=== PATIENT | female | born 1995 | race Hispanic/Latino ===

== ENCOUNTER 2018-01-01 06:18 | Emergency (ER) | payer MEDICAID, SELFPAY ==
[2018-01-01] MEDS ORDERED: Ondansetron ODT 4 MG TAB ONE ×2 (07:12→07:24)
[2018-01-01] MEDS ORDERED: Acetaminophen 500 MG TAB ONE (07:12)
[2018-01-01 08:12] LABS: Bilirubin Negative (Negative); Blood, Urine Negative (Negative); Clarity CLEAR (Clear); Glucose, Urine (Dipstick) Negative (Negative); Leukocyte Negative (Negative); Nitrite Negative (Negative); Protein, Urine (Dipstick) Negative (Neg-Trace); Specific Gravity, Urine 1.027 (1.002-1.036); pH, Urine 5.5 (5.0-9.0)
[2018-01-01 08:26] LABS: Pregnancy Test - Urine (BHCG) POSITIVE (Negative); Pregu Control Background? CLEAR/WHITE (CLR/WHITE); Pregu Control Bar Appear? YES (CONTROL BAR); Specific Gravity 1.027 (1.002-1.036)
--- NOTE | 2018-01-01 09:04 | ULT ---
ULTRASOUND LESS THAN 14 WEEKS: Date: 01/01/18 HISTORY: 22-year-old female with history of abdominal pain and early . TECHNIQUE: Exam includes transabdominal, transvaginal, and vascular duplex with color and spectral Doppler imagi ng. FINDINGS: The uterus measures 9.0 cm in length and 6.0 x 7.5 cm transversely. The right ovary measures 2.8 x 1. 4 x 1.9 cm. The left ovary measures 2.5 x 2.0 x 2.9 cm. An early intrauterine fetus is noted. heart rate is 153 beats/minute. Gestational sac size appr oximates 2.4 cm, equivalent to 7 weeks/3 days. [place]-rump length approximates 1.0 cm, equivalent to 7 weeks/1 day. IMPRESSION: With gestational age average of 7 weeks/2 days, EDC is 08/18/18. POS: [facility]
== END 2018-01-01 08:38 | disposition home or self-care (01) ==
LOC: ERS 06:18
DX: O21.9 Vomiting of pregnancy, unspecified (principal); O99.89 Other specified diseases and conditions complicating pregnancy, childbirth and the puerperium; R10.31 Right lower quadrant pain; R10.32 Left lower quadrant pain; Z3A.01 Less than 8 weeks gestation of pregnancy
CPT/HCPCS: 76856; 81003; 81025; Q0162

== ENCOUNTER 2018-02-24 02:15 | Emergency (ER) | payer MEDICAID, OTHER, SELFPAY ==
[2018-02-24] MEDS ORDERED: Acetaminophen 500 MG TAB ONE (03:06)
[2018-02-24 03:52] LABS: #Eosinphils 0.3 thou/uL (0.0-0.7); #Lymphocytes 3.5 thou/uL (1.20-3.40); #Monocytes 0.9 thou/uL (0.11-0.59); #Neutrophils 6.3 thou/uL (1.40-6.50); %Basophils 0.4 % (0.0-1.0); %Eosinophils 2.6 % (0.0-10.0); %Lymphocytes 31.9 % (21.0-51.0); %Monocytes 8.3 % (0.0-10.0); %Neutrophils 56.8 % (42.0-75.0); Bilirubin Negative (Negative); Blood, Urine Negative (Negative); Clarity CLEAR (Clear); Glucose, Urine (Dipstick) Negative (Negative); Leukocyte Negative (Negative); Mean Corpuscular HGB CONC 34.5 g/dL (32.0-36.0); Mean Corpuscular Hemoglobin 30.4 pg (27.0-31.0); Mean Platelet Volume 7.6 fL (7.4-10.4); Nitrite Negative (Negative); Platelet Count 243 thou/uL (130-400); Protein, Urine (Dipstick) Negative (Neg-Trace); RBC Distribution Width 12.3 % (11.5-14.5); Red Blood Cell (RBC) Count 4.27 mill/uL (4.20-5.40); Specific Gravity, Urine 1.021 (1.002-1.036); pH, Urine 5.5 (5.0-9.0)
[2018-02-24 04:11] LABS: ALT (SGPT) 20 U/L (8-55); AST (SGOT) 18 U/L (5-34); Albumin 4.2 g/dL (3.5-5.0); Alkaline Phosphatase 106 U/L (40-150); Anion Gap 14 mmol/L (10-20); BUN (Urea Nitrogen) 5 mg/dL (7.0-18.7); Bilirubin, Total 0.2 mg/dL (0.2-1.2); Calc. Creatinine Clearance 0 mL/min (70-130); Calcium 9.9 mg/dL (7.8-10.44); Carbon Dioxide 23 mmol/L (22-29); Chloride 103 mmol/L (98-107); Estimated GFR-MDRD Greater than 90; Globulin 3.8 g/dL (2.4-3.5); Glucose 94 mg/dL (70-105); Lipase 47 U/L (8-78); Potassium 3.7 mmol/L (3.5-5.1); Sodium 136 mmol/L (136-145)
== END 2018-02-24 05:00 | disposition home or self-care (01) ==
LOC: ERS 02:15
DX: O99.89 Other specified diseases and conditions complicating pregnancy, childbirth and the puerperium (principal); M79.1 Myalgia; Z3A.15 15 weeks gestation of pregnancy
CPT/HCPCS: 80053; 81003; 83690; 85025; 96360

== ENCOUNTER 2018-03-09 14:12 | Emergency (ER) | payer OTHER ==
[2018-03-09] MEDS ORDERED: Acetaminophen 500 MG TAB ONE (15:06)
[2018-03-09 15:19] LABS: Bilirubin Negative (Negative); Blood, Urine Negative (Negative); Clarity CLEAR (Clear); Glucose, Urine (Dipstick) Negative (Negative); Leukocyte Negative (Negative); Nitrite Negative (Negative); Protein, Urine (Dipstick) Negative (Neg-Trace); pH, Urine 7.5 (5.0-9.0)
== END 2018-03-09 16:29 | disposition home or self-care (01) ==
LOC: ERS 14:12
DX: O99.89 Other specified diseases and conditions complicating pregnancy, childbirth and the puerperium (principal); R10.9 Unspecified abdominal pain; Z3A.17 17 weeks gestation of pregnancy; V43.52XA Car driver injured in collision with other type car in traffic accident, initial encounter
CPT/HCPCS: 36415; 81003; 86900; 86901; 99284

== ENCOUNTER → 2018-05-17 | Day surgery (SDC) | payer OTHER ==
[~2018-05-17] MED LIST: Acetaminophen 325 MG TAB PO PRN; Lactated Ringer's 1,000 ML IV SCH; diphenhydrAMINE 25 MG CAP PO PRN
[2018-05-17 03:05] VITALS: BP 109/63; TEMP 99.1; BMI 30.9
[2018-05-17 04:14] LABS: Bilirubin Negative (Negative); Blood, Urine Negative (Negative); Clarity CLEAR (Clear); Glucose, Urine (Dipstick) Negative (Negative); Leukocyte Negative (Negative); Nitrite Negative (Negative); Protein, Urine (Dipstick) Negative (Neg-Trace); Specific Gravity, Urine 1.006 (1.002-1.036); Urobilinogen 0.2 mg/dL (0.2-1.0); pH, Urine 7.5 (5.0-9.0)
[2018-05-17 04:16] LABS: Bacteria/HPF None Seen HPF (None Seen); Hyaline Casts/LPF 0-3 HYALINE CAST LPF (0-3 Hyaline); Pathc Cast-AUWi Flag 0.72 (0-2.49); RBC/HPF None Seen HPF (0-3); Squamous Epithelial 0-3 HPF (0-3); WBC/HPF None Seen HPF (0-3)
[2018-05-17 04:29] LABS: #Basophils 0.1 thou/uL (0.0-0.2); #Eosinphils 0.1 thou/uL (0.0-0.7); #Monocytes 1.1 thou/uL (0.11-0.59); #Neutrophils 7.6 thou/uL (1.40-6.50); %Basophils 0.5 % (0.0-1.0); %Eosinophils 1.2 % (0.0-10.0); %Lymphocytes 25.2 % (21.0-51.0); %Monocytes 9.2 % (0.0-10.0); %Neutrophils 63.8 % (42.0-75.0); Hemoglobin 11.2 g/dL (12.0-16.0); Mean Corpuscular HGB CONC 33.7 g/dL (32.0-36.0); Mean Corpuscular Hemoglobin 28.4 pg (27.0-31.0); Mean Corpuscular Volume 84.3 fL (78.0-98.0); Mean Platelet Volume 7.6 fL (7.4-10.4); Platelet Count 299 thou/uL (130-400); Red Blood Cell (RBC) Count 3.93 mill/uL (4.20-5.40); White Blood Cell (WBC) Count 11.9 thou/uL (4.8-10.8)
[2018-05-17 04:51] LABS: ALT (SGPT) 21 U/L (8-55); AST (SGOT) 18 U/L (5-34); Albumin 3.4 g/dL (3.5-5.0); Alkaline Phosphatase 145 U/L (40-150); Anion Gap 10 mmol/L (10-20); BUN (Urea Nitrogen) 5 mg/dL (7.0-18.7); Bilirubin, Total 0.3 mg/dL (0.2-1.2); Calc. Creatinine Clearance 187 mL/min (70-130); Calcium 8.8 mg/dL (7.8-10.44); Carbon Dioxide 22 mmol/L (22-29); Chloride 106 mmol/L (98-107); Estimated GFR-MDRD Greater than 90; Globulin 3.5 g/dL (2.4-3.5); Glucose 92 mg/dL (70-105); Potassium 3.9 mmol/L (3.5-5.1); Protein, Total 6.9 g/dL (6.0-8.3); Sodium 134 mmol/L (136-145)
--- NOTE | 2018-05-17 07:52 | PDOC.FPROB ---
Addendum entered and electronically signed by Janeth Roy MD 05/17/18 08: 06: UA, CMP, CBC were largely unremarkable. Abdominal ultrasound showed no evidence of acute pathology. Pt's pain improved with Tylenol and Benadryl. Pain likely musculoskeletal, round ligament pain. Discussed stretching exercises. Cervical exam not performed because patient refused. Pt discharged from L&D in stable condition. Original Note: FMR OB H&P: HPI - History of Present Illness Chief Complaint: Abdominal Pain History of Present Illness: 22yo at 26.6 weeks EGA presenting with 1 day history of worsening abdominal pain. Pain is in bilateral lower abdominal quadrants with radiation to the buttocks and lateral thighs. Pt reports pain is 10/10 and is of crampy character. Pt reports feeling similar pain many days ago but that it resolved spontaneously. Pain is constant. Denies vaginal bleeding/loss of fluid, reports good movement. Denies nausea/vomiting, complains of headache, sob, and cp. FMR OB H&P: Current - OB Labs Blood type: unknown RH: unknown Antibody Screen: unknown HIV: unknown RPR: unknown HepBsAg: unknown Quad screen: unknown Urine drug screen: not done Gonorrhea: unknown Chlamydia: unknown GBS: unknown FMR OB H&P: History - Past Medical History PMH: none - OB History OB History: #1 - C section, no complications with - Surgical History Sx History: C section - Social History Social History: Denies EtOH/tobacco/drugs - Family History Family History: DM FMR OB H&P: Medications - Current Home Medications: Medication Instructions Recorded Confirmed Type Pnv No.95/Ferrous Fum/Folic AC 1 each PO DAILY 05/17/18 05/17/18 History [ Multivitamin Tablet] Allergies/Adverse Reactions: Allergies Allergy/AdvReac Type Severity Reaction Status Date / Time No Known Allergies Allergy Verified 05/17/18 02:48 FMR OB H&P: ROS - Review of Systems General: denies: fever/chills ENT: denies: nasal congestion Cardiovascular: reports: chest pain. denies: palpitation Respiratory: reports: shortness of breath. denies: cough Gastrointestinal: reports: abdominal pain, cramping. denies: indigestion, nausea, vomiting, bright red blood Musculoskeletal: reports: pain, tenderness Neurologic: denies: numbness, syncope FMR OB H&P: Vital Signs - Maternal Vital signs: Vital Signs - First Documented Temp Pulse Resp BP 99.1 F 83 16 109/63 05/17/18 02:46 05/17/18 02:46 05/17/18 02:46 05/17/18 02:46 - Heart Tones Variability: moderate Acceleration: absent Deceleration: absent Category: category 1 FMR OB H&P: Physical Exam - Physical Exam General: awake, alert and oriented HEENT: normocephalic and atraumatic, EOMI, MMM, normal nasal mucosa Chest: non-tender to palpation Heart: RRR, normal S1/S2 General: CTAB, no respiratory distress Abdomen: gravid, other (bilateral lower quadrant tenderness to palpation) Deviation from normal: + heel tap test Musculoskeletal: other (pt unable to tolerate psoas and obturator test due to pain. tenderness to palpation of lateral bilateral thighs) FMR OB H&P: Results - Labs Lab results: Laboratory Results - last 24 hr 05/17/18 05/17/18 05/17/18 03:56 04:20 04:20 WBC 11.9 H RBC 3.93 L Hgb 11.2 L Hct 33.2 L MCV 84.3 MCH 28.4 MCHC 33.7 RDW 13.0 Plt Count 299 MPV 7.6 Neutrophils % 63.8 Lymphocytes % 25.2 Monocytes % 9.2 Eosinophils % 1.2 Basophils % 0.5 Neutrophils # 7.6 H Lymphocytes # 3.0 Monocytes # 1.1 H Eosinophils # 0.1 Basophils # 0.1 Sodium 134 L Potassium 3.9 Chloride 106 Carbon Dioxide 22 Anion Gap 10 BUN 5 L Creatinine 0.56 L Estimated GFR (MDRD) Greater than 90 Glucose 92 Calcium 8.8 Total Bilirubin 0.3 AST 18 ALT 21 Alkaline Phosphatase 145 Serum Total Protein 6.9 Albumin 3.4 L Globulin 3.5 Albumin/Globulin Ratio 1.0 L Urine Color YELLOW Urine Clarity CLEAR Urine pH 7.5 Ur Specific [place] 1.006 Urine Protein Negative Urine Glucose (UA) Negative Urine Ketones Negative Urine Blood Negative Urine Nitrite Negative Urine Bilirubin Negative Urine Urobilinogen 0.2 Ur Leukocyte Esterase Negative Urine RBC None Seen Urine WBC None Seen Ur Squamous Epith Cells 0-3 Urine Bacteria None Seen Hyaline Casts 0-3 HYALINE CAST FMR OB H&P: A/P - Problem List (1) Abdominal pain affecting Status: Acute Code(s): O26.899 - OTH RELATED CONDITIONS, UNSPECIFIED TRIMESTER; R10.9 - UNSPECIFIED ABDOMINAL PAIN (2) and not yet delivered Status: Acute Code(s): Z34.90 - ENCNTR FOR SUPRVSN OF NORMAL , UNSP, UNSP TRIMESTER Disposition: 22yo at 26.6 weeks presenting with abdominal pain A- Pain concerning for UTI vs. cystitis vs. appendicitis. Do not have any records at this time. P- UA, CBC, BMP - Abdominal US to evaluate appendix and gall bladder -Tylenol, Benadryl, IVF bolus Attending Addendum - Attending Addendum I personally evaluated the patient and discussed the management with Dr. Griggs and Kirill. I agree with the History, Examination, Assessment and Plan documented above. No e/o acute process, patient feeling better.
--- NOTE | 2018-05-17 08:24 | ULT ---
PRELIMINARY REPORT/[facility]/EMERGENCY AFTER HOURS PROCEDURE: EXAM: US Abdomen Limited, Appendix EXAM DATE/TIME: Exam ordered 05/17/2018 4:10 AM CLINICAL HISTORY: 22 years old, female; Pain; Abdominal pain; Generalized; ; Patient HX: Abd pain - R/O appendi citis; Additional info: Patient 26w6d TECHNIQUE: Real-time ultrasound of the right lower quadrant with image documentation. COMPARISON: US - Abdomen 05/17/2018 4:00 AM FINDINGS: Limitations: Evaluation is somewhat limited by patient's gravid state. Appendix: The appendix is not visualized. Free fluid: There is no free fluid in the RIGHT lower quadrant. Other findings: There is a live intrauterine with heart rate of 147 beats per minute. IMPRESSION: Nonvisualization of the appendix without associated signs to suggest acute appendicitis. Thank you for allowing us to participate in the care of your patient. Dictated and Authenticated by: Guille Mitchell MD 05/17/2018 5:32 AM Central Time ([place] & [place]) FINAL REPORT LIMITED ABDOMINAL ULTRASOUND: (APPENDIX) I agree with the preliminary report given by Dr. Guille Mitchell of [facility]. If there is high clinical putnam spicion for appendicitis, an MRI should be performed. POS: [facility]
--- NOTE | 2018-05-17 08:26 | ULT ---
PRELIMINARY REPORT/[facility]/EMERGENCY AFTER HOURS PROCEDURE: EXAM: US Abdomen Limited, Right Upper Quadrant EXAM DATE/TIME: Exam ordered 05/17/2018 4:00 AM CLINICAL HISTORY: 22 years old, female; Pain; Abdominal pain; Generalized; ; Patient HX: Abd pain, R/O cholecys tiitis; Additional info: Patient 26w6d TECHNIQUE: Real-time ultrasound of the right upper quadrant with image documentation. COMPARISON: No relevant prior studies available. FINDINGS: Liver: The liver is echogenic compatible with fatty liver. There is mild hepatomegaly. No intrahepati c bile duct dilation. Gallbladder: Gallbladder wall thickness measures 2 mm. A negative sonographic Kirkland sign is reported . No gallstones. Common bile duct: CBD measures 4 mm in diameter. No stones. No dilation. Pancreas: The pancreas appears normal. Tail obscured by bowel gas. Right kidney: RIGHT kidney measures 11.9 x 5.1 x 4.5 cm. Not well evaluated due to bowel gas. No ston es. IMPRESSION: Unremarkable RIGHT upper quadrant ultrasound. Thank you for allowing us to participate in the care of your patient. Dictated and Authenticated by: Guille Mitchell MD 05/17/2018 5:34 AM Central Time ([place] & [place]) FINAL REPORT RIGHT UPPER QUADRANT ULTRASOUND: I agree with the preliminary report given by Dr. Guille Reza of [facility]. Fatty liver. No evidence of cholelithiasis. POS: [facility]
== END | disposition home or self-care (01) ==
LOC: L&D/OP 01:43
PROVIDERS: ATTEND Obstetrics & Gynecology
DX: O26.892 Other specified pregnancy related conditions, second trimester (principal); R10.31 Right lower quadrant pain; R10.32 Left lower quadrant pain; Z3A.26 26 weeks gestation of pregnancy; Z98.890 Other specified postprocedural states
CPT/HCPCS: 36415; 51701; 76705; 80053; 81001; 85025; 96360; 96361; 99284

== ENCOUNTER 2018-06-19 21:48 | Day surgery (SDC) | payer OTHER ==
[2018-06-19 22:30] VITALS: BP 104/61; TEMP 99; BMI 31.4
[2018-06-19] MEDS ORDERED: Lactated Ringer's 1,000 ML IV SCH (23:45)
--- NOTE | 2018-06-19 23:58 | HP ---
DATE OF ADMISSION: 06/19/2018 TIME OF EVALUATION: 23:25. LOCATION: L and D triage. This is a patient of the Clinic. The patient is here for irregular contractions that are about every 15-20 minutes at 31 weeks and 4 days. HISTORY OF PRESENT ILLNESS: In brief, this is a 22-year-old G2, P1 at 31 weeks and 4 days by last menstrual period and by first trimester ultrasound who arrives with irregular contractions for a day, but she states that they are only about every 15-20 minutes. She has no vaginal bleeding or rupture of membranes. She has no headache or fever history. She also states some decreased movements at this time. She has a prior x1 in [facility] for "low fluid." We do not have that record available. That was at term. PAST SURGICAL HISTORY: x1 in [facility] with an unknown incision type. PAST MEDICAL HISTORY: Otherwise negative. ALLERGIES: None. REVIEW OF SYSTEMS: Complete review of systems was checked and is otherwise negative unless specified in the HPI. PHYSICAL EXAMINATION: VITAL SIGNS: Blood pressure is 104/61 and she is afebrile. Pulse is normal. GENERAL: Clinically, she is in no acute distress and does not appear to be in active labor. ABDOMEN: Uterus is soft and nontender. Size is consistent with dates. Cervical exam is currently deferred until a fibronectin is checked. INTERVENTIONS ORDERED: I have ordered a fibronectin, LR 1 liter bolus and a cervical length. MONITORING: heart tones are in the 140s with accelerations and moderate variability and no decelerations. Tocodynamometer shows 3 contractions in 15-20 minutes. ASSESSMENT: This is a 22-year-old, G2, P1, prior x1 at term in [facility] (unknown incision type) who is currently at 31 weeks and 4 days with likely Mika Strong contractions. PLAN: 1. FFN ordered. 2. Cervical length. 3. Cervical examination deferred until these first two evaluations are done. 4. IV fluid hydration. 5. It would be a task of the Clinic to get the report from [facility] in case the patient desires a trial of labor after . 6. No acute needs at this time. 7. Final disposition pending this evaluation results. Addendum: Patient states she was told by her delivering physician that she would be able to TOLAC. [facility]
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
--- NOTE | 2018-06-20 00:47 | PDOC.EVN ---
Event Note - Event Note Event Note: cervical length over 4cm FFN pending
[2018-06-20 00:57] LABS: Bilirubin Negative (Negative); Blood, Urine Negative (Negative); Clarity CLEAR (Clear); Glucose, Urine (Dipstick) Negative (Negative); Leukocyte Negative (Negative); Nitrite Negative (Negative); Protein, Urine (Dipstick) Negative (Neg-Trace); Specific Gravity, Urine 1.005 (1.002-1.036); Urobilinogen 0.2 mg/dL (0.2-1.0); pH, Urine 7.5 (5.0-9.0)
[2018-06-20 01:17] LABS: FFN Internal QC Analyzer PASS (PASS); FFN Internal QC Cassette PASS (PASS); Fetal Fibronectin Negative (Negative)
--- NOTE | 2018-06-20 01:26 | PDOC.EVN ---
Event Note - Event Note Event Note: UA clear, FFN negative Ok for outpatient care
--- NOTE | 2018-06-20 08:30 | ULT ---
PRELIMINARY REPORT/[facility]/EMERGENTY AFTER-HOURS PROCEDURE US , Limited EXAM DATE/TIME: 06/20/2018 12:13 AM CLINICAL HISTORY: 22 years old, female; Pain and screening exam; Other: Cervical length; complicated by abdom inal or pelvic pain; Lower; Third trimester; Gestational age or lmp: 31w5d; ; Patient HX: Nithin nful contractions, evaluate for cervical length TECHNIQUE: Real-time ultrasound of the maternal uterus with image documentation. Exam focused on the cl inical issue. COMPARISON: No relevant prior studies available. FINDINGS: Single living intrauterine gestation in vertex presentation. heart rate: 158 bpm. Placenta is a nterior grade 1. Amniotic fluid appears adequate. Cervix is closed measuring 4.9 cm in length. IMPRESSION: Single viable intrauterine . Findings described above. Thank you for allowing us to participate in the care of your patient. Dictated and Authenticated by: Corwin Valles MD 06/20/2018 12:50 AM Central Time ([place] & [place]) FINAL REPORT LIMITED OB ULTRASOUND: Emergency after hours exam 12:16 a.m. 06-20-18 History: Evaluate cervical length, painful contractions. FINDINGS: Limited study performed only to evaluate the lower uterine segment and cervical length. Cervical length equals 4.9 cm. IMPRESSION: Cervical length equals 4.9 cm. Code QA/agree with [facility]. POS: [facility]
== END 2018-06-20 01:50 | disposition home or self-care (01) ==
LOC: L&D/OP 21:48
PROVIDERS: ATTEND Obstetrics & Gynecology
DX: O47.03 False labor before 37 completed weeks of gestation, third trimester (principal); O36.8130 Decreased fetal movements, third trimester, not applicable or unspecified; O99.89 Other specified diseases and conditions complicating pregnancy, childbirth and the puerperium; R33.9 Retention of urine, unspecified; Z3A.31 31 weeks gestation of pregnancy; Z79.899 Other long term (current) drug therapy
CPT/HCPCS: 51701; 76857; 81003; 82731; 96360; 99284

== ENCOUNTER 2018-08-02 20:20 | Inpatient (IN) | payer MEDICAID, OTHER, SELFPAY ==
[~2018-08-02 20:20] MED LIST changes: -Acetaminophen 325 MG TAB PO PRN; +Ketorolac Tromethamine 30 MG/ML VIAL ONE; -Lactated Ringer's 1,000 ML IV SCH; +Ondansetron PF 4 MG/2 ML Vial ONE; +PHENYLEPHRINE-NS 100 MCG/ML 10 ML SYRINGE ONE; -diphenhydrAMINE 25 MG CAP PO PRN
[2018-08-02 21:16] VITALS: BMI 30.3
[2018-08-02 21:37] LABS: Amnisure Test RUPTURE DETECTED (No Rupture)
[2018-08-02 21:38] LABS: Amnisure Internal Control QC ACCEPTABLE (ACCEPTABLE)
--- NOTE | 2018-08-02 22:08 | PDOC.FPRHP ---
- History of Present Illness Chief Complaint: Leaking fluid History of Present Illness: 22 yo at 37.6w by LMP/9.6w sono here with cc of LOF. She reports after she was checked on Monday at clinic she started having some brown/mucusy discharge. That was occurring for 1-2 days then the discharge became more of a thin white discharge. Starting Monday she also began to have lower abdominal pain and back pain intermittently. She stated that the pain would be constant for a couple of hours then go away. It has been on and off the last few days. She also feel like baby has dropped much lower. She is feeling regular movement and denies any rudolph vaginal bleeding, dysuria, hematuria. - Allergies/Adverse Reactions Allergies Allergy/AdvReac Type Severity Reaction Status Date / Time No Known Allergies Allergy Verified 08/02/18 21:16 - Home Medications Medication Instructions Recorded Confirmed Type Pnv No.95/Ferrous Fum/Folic AC 1 each PO DAILY 05/17/18 08/02/18 History [ Multivitamin Tablet] - History PMHx: None PSHx: C/S x1 (2013) FHx: Paternal grandmother: DM and HTN Social: Denies tobacco, alcohol, drug use - Review of Systems General: denies: fever/chills, weight/appetite/sleep changes Eyes: denies: eye pain, vision changes ENT: denies: nasal congestion, rhinorrhea Respiratory: denies: cough - Vital signs BP: [] HR: [] RR: [] Tmax: [] Pox: []% on [] Wt: [] FMR H&P: Upper Level - Plan Date/Time: 08/02/18 2205 I, [], have evaluated this patient and agree with findings/plan as outlined by customer success intern resident. Pertinent changes/additions are listed here.
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
--- NOTE | 2018-08-02 22:58 | ULT ---
BIOPHYSICAL PROFILE 08/02/18 HISTORY: monitoring. 22-year-old female. TECHNIQUE: Multiplanar varghese scale sonographic imaging of the gravid uterus obtained. FINDINGS: The poultry farmer egg reports a 2 out of 2 score for tone, breathing, movement and amniot ic fluid, for an 8 out of 8 normal biophysical profile score. A single intrauterine gestation is noted with a vertex presentation. Cervical length is estimated at 2.7 cm but is partially obscured and may not be completely accurate. The placenta is located anterior ly with no evidence for previa or abruption. heart rate is 145 beats per minute. Amniotic fluid index is estimated at 7.8 cm. IMPRESSION: Single intrauterine gestation demonstrating a normal 8 out of 8 biophysical profile score. Amniotic f luid index is low at approximately 7.8 cm. POS: [facility]
[2018-08-02] MEDS ORDERED: Promethazine HCl 25 MG/ML VIAL IM PRN (23:36)
[2018-08-02] MEDS ORDERED: Ondansetron PF 4 MG/2 ML Vial IVP PRN (23:36)
[2018-08-02] MEDS ORDERED: CEFAZOLIN 2 GM/50 ML BAG IVPB SCH (23:45)
--- NOTE | 2018-08-02 23:57 | PDOC.EVN ---
Event Note - Event Note Event Note: Discussed further findings with Dr. Barajas and patient. Labs reveal amnsiure positive, low-normal DAWIT, and VP3 negative. Suspect she may have slow amniotic fluid leak. Given cervix is 1/50/-3 and not favorable in setting of h/ o C/S, recommend proceeding with repeat C/S for PROM and prior C/S of which patient is agreeable to. Discussed risks including bleeding, damage to surrounding structures, infection and hysterectomy as well as benefits and alternatives. She has been concerned about TOLAC throughout and prefers to proceed with repeat C/S. Will notify team and plan for C/S tonight. <Bibiana Hanna - Last Filed: 08/02/18 23:55> Attending Addendum - Attending Addendum Date/Time: 08/03/18 0047 I personally evaluated the patient and discussed the management with Dr. Hanna. I agree with the History, Examination, Assessment and Plan documented above with any addition or exceptions noted below. See my H&P. <Jeff Barajas - Last Filed: 08/03/18 00:47>
[2018-08-03 00:15] LABS: Hemoglobin 10.7 g/dL (12.0-16.0); Mean Corpuscular HGB CONC 32.5 g/dL (32.0-36.0); Mean Corpuscular Volume 73.9 fL (78.0-98.0); Mean Platelet Volume 10.4 fL (7.4-10.4); Platelet Count 322 thou/uL (130-400); RBC Distribution Width 17.8 % (11.5-14.5); Red Blood Cell (RBC) Count 4.45 mill/uL (4.20-5.40); White Blood Cell (WBC) Count 10.1 thou/uL (4.8-10.8)
[2018-08-03] MEDS ORDERED: Azithromycin 500 MG in Sodium Chloride 0.9% 250 ML 250 ML IVPB SCH (00:30)
[2018-08-03] MEDS: Bicitra 30 ML UDCUP PO SCH (00:33)
[2018-08-03] MEDS ORDERED: Morphine PF 1 MG/ML SYR ONE ×2 (00:37→03:37)
[2018-08-03 00:40] LABS: ALT (SGPT) 39 U/L (8-55); AST (SGOT) 40 U/L (5-34); Albumin 3.2 g/dL (3.5-5.0); Alkaline Phosphatase 329 U/L (40-150); Anion Gap 12 mmol/L (10-20); BUN (Urea Nitrogen) 14 mg/dL (7.0-18.7); Bilirubin, Total 0.2 mg/dL (0.2-1.2); Calc. Creatinine Clearance 173 mL/min (70-130); Calcium 9.2 mg/dL (7.8-10.44); Carbon Dioxide 22 mmol/L (22-29); Chloride 106 mmol/L (98-107); Estimated GFR-MDRD Greater than 90; Globulin 4.2 g/dL (2.4-3.5); Glucose 85 mg/dL (70-105); Potassium 4.6 mmol/L (3.5-5.1); Protein, Total 7.4 g/dL (6.0-8.3); Sodium 135 mmol/L (136-145)
[2018-08-03] MEDS ORDERED: Oxytocin 10 UNITS/ML VIAL ONE ×2 (00:41→03:37)
[2018-08-03] MEDS ORDERED: Lactated Ringer's 1,000 ML IV SCH (00:45)
[2018-08-03 00:53] LABS: HBSAg Index 0.24 S/CO (0-0.99); HIV (1/2) Antibody/Antigen Non-Reactive (NonReactive); Hep B Surf Ag Non-Reactive S/CO (NonReactive); Syphilis Antibody Nonreactive (Nonreactive); Syphilis Antibody Index 0.05 S/CO (<1.00 Non-Reactive)
[2018-08-03] MEDS ORDERED: PHENYLEPHRINE-NS 100 MCG/ML 10 ML SYRINGE ONE ×2 (00:58→03:39)
[2018-08-03] MEDS ORDERED: Promethazine HCl 25 MG/ML VIAL IM PRN ×2 (01:06→02:09)
[2018-08-03] MEDS ORDERED: Ondansetron HCl/PF 4 MG/2 ML Vial IVP PRN ×3 (01:06→03:26)
[2018-08-03] MEDS ORDERED: Eucerin (Mineral Oil/Petrolatum,White) 30 gm Jar TOP PRN ×2 (01:06→02:09)
[2018-08-03] MEDS ORDERED: Naloxone HCl 0.4 mg/ml Vial IVP PRN ×4 (01:06→02:09)
[2018-08-03] MEDS ORDERED: Ondansetron PF 4 MG/2 ML Vial IVP PRN ×2 (01:06→02:09)
[2018-08-03] MEDS ORDERED: Ketorolac Tromethamine 30 MG/ML VIAL IVP PRN ×2 (01:06→02:09)
[2018-08-03] MEDS ORDERED: Meperidine HCl/PF 25 MG/ML VIAL SLOW IVP PRN ×3 (01:06→03:26)
[2018-08-03] MEDS ORDERED: HYDROmorphone 2 MG/ML VIAL SLOW IVP PRN ×3 (01:06→03:26)
[2018-08-03] MEDS ORDERED: Naloxone HCl 0.4 mg/ml Vial IV PRN ×2 (01:06→02:09)
[2018-08-03] MEDS ORDERED: L&D-Morphine 4 MG/ML VIAL SLOW IVP PRN ×3 (01:06→03:26)
[2018-08-03] MEDS ORDERED: Promethazine HCl 25 MG SUPP PR PRN ×2 (01:06→02:09)
[2018-08-03] MEDS ORDERED: Communication Order-Pharmacy FS SCH ×2 (01:15→02:15)
[2018-08-03] MEDS ORDERED: Ketorolac Tromethamine 30 MG/ML VIAL IVP SCH ×3 (01:15→03:30)
[2018-08-03] MEDS ORDERED: Methylergonovine 0.2 MG/ML VIAL ONE (01:31)
[2018-08-03] MEDS ORDERED: Ondansetron PF 4 MG/2 ML Vial ONE ×2 (01:33→04:11)
[2018-08-03] MEDS ORDERED: Ketorolac Tromethamine 30 MG/ML VIAL ONE ×2 (01:33→04:11)
[2018-08-03] MEDS ORDERED: Fentanyl 100 MCG/2 ML VIAL ONE ×3 (01:54→04:20)
[2018-08-03] MEDS ORDERED: Midazolam HCl 2 mg/2 ml Vial ONE (01:58)
[2018-08-03] MEDS ORDERED: diphenhydrAMINE 50 MG/ML VIAL IVP PRN (02:09)
[2018-08-03] MEDS ORDERED: diphenhydrAMINE 50 MG/ML VIAL ONE (03:20)
[2018-08-03] MEDS: diphenhydrAMINE 50 MG/ML VIAL IVP PRN ×2 (03:33→08:05)
[2018-08-03] MEDS ORDERED: Acetaminophen 325 MG TAB PO PRN (04:03)
[2018-08-03] MEDS ORDERED: Bisacodyl 10 MG SUPP PR PRN (04:03)
[2018-08-03] MEDS ORDERED: Methylergonovine 0.2 MG TAB PO PRN (04:03)
[2018-08-03] MEDS ORDERED: Misoprostol 200 MCG TAB PR PRN (04:03)
[2018-08-03] MEDS ORDERED: Methylergonovine 0.2 MG/ML VIAL IM PRN (04:03)
[2018-08-03] MEDS ORDERED: Lanolin Ointment 7 GM TUBE TOP PRN (04:03)
[2018-08-03] MEDS ORDERED: Dexamethasone 4 mg/ml Vial ONE (04:11)
[2018-08-03] MEDS: NS / Oxytocin 40 units/1000ml 1,000 ML IV SCH ×3 (04:31→20:41)
--- NOTE | 2018-08-03 07:57 | PDOC.PP ---
Post Progress Note Post Day #: 0 Subjective: Pain well controlled and sleeping on and off intermittently. Complaining of diffuse itching and had temporary relief with benadryl earlier. No flatus yet. PO intake tolerated: no Flatus: no Ambulation: no Vital Signs (12 hours) Temp Pulse Resp BP Pulse Ox 08/03/18 06:20 98.2 F 82 18 119/75 08/03/18 05:10 98.1 F 85 18 111/69 08/03/18 04:30 97.6 F 73 20 115/69 08/03/18 04:00 97.8 F 73 20 124/75 96 08/02/18 21:06 98.2 F 86 20 118/75 98 Weight Weight 75.296 kg - Physical Examination General: NAD Cardiovascular: RRR Respiratory: clear to auscultation bilaterally Abdominal: + bowel sounds Fundus firm & at: umbilicus Skin: CS incision dry & intact (bandage in place) Neurological: no gross focal deficits Psychiatric: A&Ox3, normal affect Result Diagrams: 08/02/18 23:45 08/02/18 23:45 Additional Labs: Post Labs Blood Type O POSITIVE 08/02/18 23:45 Hep Bs Antigen Non-Reactive S/CO (NonReactive) 08/03/18 00:05 (1) Status: Acute (2) GBS bacteriuria Code(s): R82.71 - BACTERIURIA Status: Acute (3) Susceptible to Varicella (non-immune), currently in third trimester Code(s): O09.893 - SUPERVISION OF OTHER HIGH RISK PREGNANCIES, THIRD TRIMESTER; Z28.3 - UNDERIMMUNIZATION STATUS Status: Acute - Assessment/Plan 1. PPD #0 from [facility] - 4 hour post-op check - Additional bleeding on arrival to but has since slowed and is minimal - Continue to monitor vital signs closely - H&H in a.m. unless indicated sooner
[2018-08-03] MEDS: Lactated Ringer's 1,000 ML IV SCH ×3 (08:08→15:13)
[2018-08-03] MEDS: Ibuprofen 800 MG TAB PO SCH ×3 (08:09→21:05)
[2018-08-03] MEDS: Prenatal Vitamin 1 TAB PO SCH (08:09)
[2018-08-03] MEDS ORDERED: Adacel (T-DAP) 0.5 ML SYRINGE IM ONE (09:00)
[2018-08-03] MEDS: HYDROcodone/Acetaminophen 5/325 mg Tablet PO PRN ×2 (14:24→21:04)
--- NOTE | 2018-08-03 15:19 | PDOC.EVN ---
Event Note - Event Note Event Note: Paged by nursing to inform residents of elevated temp of 100.0F and increased abdominal tenderness. Went to bedside to examine patient. Patient had normal appearing discharge but out of proportion abdominal pain. She stated he pain is worse than her prior . Given concern for prolong PROM, will start Clinda and gent. Discussed with Dr. Tobin.
[2018-08-03] MEDS: Clindamycin/D5W 900 MG in Premix Bag 1 BAG IVPB SCH ×2 (16:14→23:39)
[2018-08-04] MEDS: HYDROcodone/Acetaminophen 5/325 mg Tablet PO PRN ×6 (01:18→23:21)
[2018-08-04] MEDS: Lactated Ringer's 1,000 ML IV SCH ×3 (01:22→17:16)
[2018-08-04] MEDS: Bicitra 30 ML UDCUP PO SCH (02:50)
[2018-08-04] MEDS: Ibuprofen 800 MG TAB PO SCH ×3 (05:27→21:11)
[2018-08-04] MEDS: NS / Oxytocin 40 units/1000ml 1,000 ML IV SCH ×3 (05:42→21:13)
--- NOTE | 2018-08-04 05:54 | PDOC.PP ---
Post Progress Note Post Day #: 1 Subjective: In significant pain this morning. Notes it to be worse along incision site but diffusely across abdomen. Improves with norco. PO intake tolerated: yes Flatus: no Ambulation: yes Vital Signs (12 hours) Temp Pulse Resp BP Pulse Ox 08/04/18 05:20 98.4 F 109 H 20 135/72 08/04/18 00:00 98.0 F 89 18 109/62 08/03/18 22:00 20 08/03/18 20:00 98.1 F 94 20 104/63 95 Weight Weight 75.296 kg - Physical Examination Deviation from normal: appears uncomfortable, was sleeping initially but awoke with baby crying Cardiovascular: RRR Respiratory: clear to auscultation bilaterally Abdominal: + bowel sounds Deviation from normal: unexpectedly TTP Skin: CS incision dry & intact, no rash Neurological: no gross focal deficits Psychiatric: normal affect Result Diagrams: 08/04/18 06:12 08/02/18 23:45 Additional Labs: Post Labs Blood Type O POSITIVE 08/02/18 23:45 Hep Bs Antigen Non-Reactive S/CO (NonReactive) 08/03/18 00:05 (1) Status: Acute (2) GBS bacteriuria Code(s): R82.71 - BACTERIURIA Status: Acute (3) Susceptible to Varicella (non-immune), currently in third trimester Code(s): O09.893 - SUPERVISION OF OTHER HIGH RISK PREGNANCIES, THIRD TRIMESTER; Z28.3 - UNDERIMMUNIZATION STATUS Status: Acute (4) Endometritis Code(s): N71.9 - INFLAMMATORY DISEASE OF UTERUS, UNSPECIFIED Status: Acute - Assessment/Plan 22 yo G2 now P[facility] [place] and remote from delivery 1. POD #1 - Abdominal pain somewhat disproportionate - Will check stat H&H and re-assess after pain medication this morning - Consider CT scan 2. PP endometritis - Temp 100.0 yesterday with increased abdominal pain - Continue gent/clinda - Afebrile <Bibiana Hanna - Last Filed: 08/04/18 07:53> Vital Signs (12 hours) Temp Pulse Resp BP Pulse Ox 08/04/18 13:52 99.2 F 08/04/18 12:00 97.9 F 97 16 138/85 08/04/18 09:00 98.2 F 91 14 114/62 96 08/04/18 05:20 98.4 F 109 H 20 135/72 Weight Weight 75.296 kg Result Diagrams: 08/04/18 06:12 08/02/18 23:45 Additional Labs: Post Labs Blood Type O POSITIVE 08/02/18 23:45 Hep Bs Antigen Non-Reactive S/CO (NonReactive) 08/03/18 00:05 <Hannah Johnson - Last Filed: 08/04/18 14:10> Attending Addendum - Attending Addendum Date/Time: 08/04/18 2264 I personally evaluated the patient and discussed the management with Dr. Hanna I agree with the History, Examination, Assessment and Plan documented above with any addition or exceptions noted below. POD #1 s/p [facility] Pain significantly increased this morning but gets better with [place]. +Flatus. UOP adequate. VSS. ambulating without difficulty Appropriate drop in Hgb postoperatively Fundus is firm and appropriately tender to palpation. +Bowel sounds. Continue close monitoring. Suspect increased pain due to duramorph wearing off but if pain continues to be out of proportion to exam will get CT scan. Encourage ambulation Continue antibiotics for presumed metritis. Anticipate d/c to home on POD #3 <Hannah Johnson - Last Filed: 08/04/18 14:10>
[2018-08-04 06:23] LABS: #Eosinphils 0.1 thou/uL (0.0-0.7); #Lymphocytes 2.3 thou/uL (1.20-3.40); #Monocytes 1.2 thou/uL (0.11-0.59); #Neutrophils 10.3 thou/uL (1.40-6.50); %Basophils 0.3 % (0.0-1.0); %Eosinophils 0.8 % (0.0-10.0); %Lymphocytes 16.6 % (21.0-51.0); %Monocytes 8.9 % (0.0-10.0); %Neutrophils 73.4 % (42.0-75.0); Hemoglobin 8.6 g/dL (12.0-16.0); Mean Corpuscular HGB CONC 31.8 g/dL (32.0-36.0); Mean Corpuscular Hemoglobin 23.6 pg (27.0-31.0); Mean Corpuscular Volume 74.2 fL (78.0-98.0); Mean Platelet Volume 8.7 fL (7.4-10.4); Platelet Count 282 thou/uL (130-400); RBC Distribution Width 17.9 % (11.5-14.5); Red Blood Cell (RBC) Count 3.63 mill/uL (4.20-5.40); White Blood Cell (WBC) Count 14.1 thou/uL (4.8-10.8)
[2018-08-04] MEDS: Clindamycin/D5W 900 MG in Premix Bag 1 BAG IVPB SCH ×3 (08:50→23:15)
[2018-08-04] MEDS: Simethicone Chewable 80 MG TAB PO PRN ×2 (08:51→21:11)
[2018-08-04] MEDS: Prenatal Vitamin 1 TAB PO SCH (08:51)
[2018-08-05] MEDS: Lactated Ringer's 1,000 ML IV SCH ×3 (02:27→10:05)
[2018-08-05] MEDS: HYDROcodone/Acetaminophen 5/325 mg Tablet PO PRN ×2 (04:16→17:08)
[2018-08-05] MEDS: NS / Oxytocin 40 units/1000ml 1,000 ML IV SCH ×3 (04:54→18:21)
[2018-08-05] MEDS: Ibuprofen 800 MG TAB PO SCH ×3 (06:05→22:08)
[2018-08-05] MEDS: Simethicone Chewable 80 MG TAB PO PRN (06:05)
--- NOTE | 2018-08-05 07:34 | PDOC.PP ---
Post Progress Note Post Day #: 2 Subjective: Feeling much better today. Pain is adequately controlled though still moderate. Ambulating, passing flatus, tolerating PO. PO intake tolerated: yes Flatus: yes Ambulation: yes Vital Signs (12 hours) Temp Pulse Resp BP Pulse Ox 08/05/18 04:10 98.2 F 94 18 109/69 96 08/04/18 23:20 98.2 F 95 18 111/73 97 08/04/18 20:00 98.3 F 91 18 106/64 95 Weight Weight 75.296 kg - Physical Examination General: NAD Cardiovascular: no m/r/g, RRR Respiratory: clear to auscultation bilaterally Abdominal: + bowel sounds, lochia (appropriate), no distention, appropriately TTP Fundus firm & at: umbilicus Extremities: negative homans (B) Skin: CS incision dry & intact, no rash Neurological: no gross focal deficits Psychiatric: A&Ox3, normal affect Result Diagrams: 08/04/18 06:12 08/02/18 23:45 Additional Labs: Post Labs Blood Type O POSITIVE 08/02/18 23:45 Hep Bs Antigen Non-Reactive S/CO (NonReactive) 08/03/18 00:05 (1) Status: Acute (2) GBS bacteriuria Code(s): R82.71 - BACTERIURIA Status: Acute (3) Susceptible to Varicella (non-immune), currently in third trimester Code(s): O09.893 - SUPERVISION OF OTHER HIGH RISK PREGNANCIES, THIRD TRIMESTER; Z28.3 - UNDERIMMUNIZATION STATUS Status: Acute (4) Endometritis Code(s): N71.9 - INFLAMMATORY DISEASE OF UTERUS, UNSPECIFIED Status: Acute - Assessment/Plan 22 yo G2 [facility] from delivery 1. POD #2 - Abdominal pain markedly improved today - Declines abdominal binder - Continue routine pp care - If pain increases again, consider KUB vs. CT and repeat H&H 2. PP endometritis - Has remained afebrile, no foul smelling lochia - Can d/c antibiotics today Possible discharge tomorrow <Bibiana Hanna - Last Filed: 08/05/18 08:05> Vital Signs (12 hours) Temp Pulse Resp BP Pulse Ox 08/05/18 08:49 98.6 F 92 14 114/67 95 08/05/18 04:10 98.2 F 94 18 109/69 96 08/04/18 23:20 98.2 F 95 18 111/73 97 Weight Weight 75.296 kg Result Diagrams: 08/04/18 06:12 08/02/18 23:45 Additional Labs: Post Labs Blood Type O POSITIVE 08/02/18 23:45 Hep Bs Antigen Non-Reactive S/CO (NonReactive) 08/03/18 00:05 <Hannah Johnson - Last Filed: 08/05/18 11:15> Attending Addendum - Attending Addendum Date/Time: 08/05/18 1114 I personally evaluated the patient and discussed the management with Dr. Hanna I agree with the History, Examination, Assessment and Plan documented above with any addition or exceptions noted below. Pain significantly improved today. D/C antibiotics today Anticipate d/c to home tomorrow. <Hannah Johnson - Last Filed: 08/05/18 11:15>
[2018-08-05] MEDS: Clindamycin/D5W 900 MG in Premix Bag 1 BAG IVPB SCH ×2 (08:41→16:47)
[2018-08-05] MEDS: Prenatal Vitamin 1 TAB PO SCH (08:41)
[2018-08-05] MEDS ORDERED: Benzonatate 100 MG CAP PO PRN (20:44)
[2018-08-05] MEDS ORDERED: guaiFENesin ER 600 MG TAB PO PRN (20:44)
[2018-08-06] MEDS: Clindamycin/D5W 900 MG in Premix Bag 1 BAG IVPB SCH (00:35)
[2018-08-06] MEDS: Lactated Ringer's 1,000 ML IV SCH ×2 (02:01→07:16)
[2018-08-06] MEDS: Ibuprofen 800 MG TAB PO SCH ×2 (05:56→13:33)
[2018-08-06] MEDS: NS / Oxytocin 40 units/1000ml 1,000 ML IV SCH ×2 (06:04→07:17)
--- NOTE | 2018-08-06 07:09 | PDOC.PP ---
Post Progress Note Post Day #: 3 Subjective: Pain much improved today but still very tender along incision line. Discussed importance of keeping area clean and dry. Otherwise, ambulating, tolerating PO and passing flatus. PO intake tolerated: yes Flatus: yes Ambulation: yes Vital Signs (12 hours) Temp Pulse Resp BP Pulse Ox 08/06/18 04:15 98.6 F 08/06/18 00:35 98.7 F 92 18 123/71 97 08/05/18 20:45 98.4 F 95 18 120/73 96 Weight Weight 75.296 kg - Physical Examination General: NAD Cardiovascular: no m/r/g, RRR Respiratory: clear to auscultation bilaterally Abdominal: + bowel sounds, lochia (appropriate), no distention, appropriately TTP Fundus firm & at: umbilicus Extremities: negative homans (B) Skin: CS incision dry & intact, no rash Neurological: no gross focal deficits Psychiatric: A&Ox3, normal affect Result Diagrams: 08/04/18 06:12 08/02/18 23:45 Additional Labs: Post Labs Blood Type O POSITIVE 08/02/18 23:45 Hep Bs Antigen Non-Reactive S/CO (NonReactive) 08/03/18 00:05 (1) Status: Acute (2) GBS bacteriuria Code(s): R82.71 - BACTERIURIA Status: Acute (3) Susceptible to Varicella (non-immune), currently in third trimester Code(s): O09.893 - SUPERVISION OF OTHER HIGH RISK PREGNANCIES, THIRD TRIMESTER; Z28.3 - UNDERIMMUNIZATION STATUS Status: Acute (4) Endometritis Code(s): N71.9 - INFLAMMATORY DISEASE OF UTERUS, UNSPECIFIED Status: Acute - Assessment/Plan 22 yo G2 [facility] POD #3 - Abdominal pain markedly improved today - Declines abdominal binder - Continue routine pp care - If pain increases again, consider KUB vs. CT and repeat H&H 2. PP endometritis - Has remained afebrile, no foul smelling lochia - s/p 48h abx Plan for discharge later today <Bibiana Hanna - Last Filed: 08/06/18 07:39> Vital Signs (12 hours) Temp Pulse Resp BP Pulse Ox 08/06/18 11:55 98.3 F 87 20 119/76 08/06/18 08:18 98.6 F 91 20 119/69 96 08/06/18 04:15 98.6 F Weight Weight 75.296 kg Result Diagrams: 08/04/18 06:12 08/02/18 23:45 Additional Labs: Post Labs Blood Type O POSITIVE 08/02/18 23:45 Hep Bs Antigen Non-Reactive S/CO (NonReactive) 08/03/18 00:05 <Hannah Johnson - Last Filed: 08/06/18 14:30> Attending Addendum - Attending Addendum Date/Time: 08/06/18 1423 I personally evaluated the patient and discussed the management with Dr. Hanna I agree with the History, Examination, Assessment and Plan documented above with any addition or exceptions noted below. Stable POD# 3. Meeting appropriate milestones. D/C to home today <Hannah Johnson - Last Filed: 08/06/18 14:30>
--- NOTE | 2018-08-06 08:30 | DN ---
DATE OF PROCEDURE: 08/03/2018 RESIDENT: Bibiana Hanna M.D. ATTENDING SURGEON: Jeff Barajas M.D. PROCEDURE PERFORMED: Repeat low transverse section. PREOPERATIVE DIAGNOSES: 1. Term intrauterine . 2. Premature rupture of membranes. 3. Previous section. 4. GBS bacteriuria POSTOPERATIVE DIAGNOSES: 1. Term intrauterine . 2. Premature rupture of membranes. 3. Previous section. 4. Status post repeat low transverse section. 5. GBS bacteriuria ANESTHESIA: Spinal. INDICATIONS: The patient is a 22-year-old G2, P-1-0-0-1 at 38.0 weeks gestation , who presented with premature rupture of membranes, remote from delivery. Options for expectant management versus repeat were discussed with the patient and she agreed to proceed with repeat after discussion of risks, benefits and alternatives were discussed including bleeding, infection, damage to surrounding structures, and possible hysterectomy. PROCEDURE IN DETAIL: After risks, benefits and alternatives were explained to the patient, gave informed consent. Preoperative antibiotics included cefazolin 2 g IV and azithromycin 500 mg IV. The patient was taken to the operating room and spinal anesthesia was initiated. She was placed in supine position with left tilt and prepped and draped in the usual sterile fashion. A Pfannenstiel incision was made with the scalpel and carried down to the level of the fascia, which was sharply nicked. The fascial cut was extended bilaterally with Epstein scissors. The inferior and superior edges of the cut fascial edges were elevated with Abhishek clamps and underlying rectus muscles were sharply and bluntly dissected free. The recti were divided digitally and retracted manually. The peritoneum was entered bluntly and retracted manually. The peritoneum was entered bluntly and retracted manually. Bladder blade was placed. The bladder flap was created with Metzenbaum scissors and anterior uterine adhesions were noted, which were dissected down with Bovie cautery and blunt dissection. Low transverse incision was made with the scalpel and the uterus was entered in the midline with a scalpel. Clear fluid was seen. The hysterotomy was extended manually. The infant was noted to be in vertex and delivered after extension of the hysterotomy with bandage scissors. A vacuum was attempted with 3 pop-offs, inadequate suction suspected. The delivered after adequate room was made with bandage scissors. Mouth and nares were bulb suctioned. Cord clamped and cut, and grossly normal female infant was handed to awaiting nurse. Cord blood was obtained. Placenta was manually extracted and found to be intact with 3-vessel cord and discarded. The uterus was externalized and the endometrium was curetted with a dry lap. The bladder blade was replaced and the uterus was closed with a running locking 1-0 Monocryl suture, followed by 2 interrupted 3-0 Vicryl figure-of-8 sutures on the maternal R corner. Following this, hemostasis was noted. The uterus was internalized and the hysterotomy was noted to be hemostatic. Seprafilm was applied. The fascia was closed with a running nonlocking 0 PDS suture. The subcutaneous tissue was irrigated and all bleeders were cauterized. The subcutaneous tissue was approximated with 3 interrupted 2-0 plain gut sutures. The skin was approximated with 4-0 Monocryl sutures and Steri-Strips. A pressure dresssing was applied. All counts were correct. The patient tolerated the procedure well and was taken to recovery room in stable condition. QUANTITATIVE BLOOD LOSS: 755 mL. COMPLICATIONS: Anterior uterine adhesions noted. SPECIMEN: Cord blood sent to lab for blood type. FINDINGS: 1. Grossly normal female with Apgars of 8 and 9. 2. Grossly normal placenta with a 3-vessel cord, discarded. DRAINS: [place] to gravity draining clear urine. Job ID: [id number] Attending addendum: I was present for all critical portions of the procedure. SANTA
[2018-08-06] MEDS: HYDROcodone/Acetaminophen 5/325 mg Tablet PO PRN ×2 (08:59→13:33)
[2018-08-06] MEDS: Prenatal Vitamin 1 TAB PO SCH (08:59)
[2018-08-06] MEDS ORDERED: Varicella virus, LIVE 0.5 ML VIAL SC ONE ×2 (10:52→14:00)
[2018-08-06 11:56] VITALS: BP 119/76; TEMP 98.3
== END 2018-08-06 15:25 | disposition home or self-care (01) | DRG 787 ==
LOC: L&D/OP 20:20 → L&D 23:36 → 3SW 08-03 04:14
PROVIDERS: ADMIT Emergency Medicine; ATTEND Emergency Medicine
PROC: 10D00Z1 Extraction of Products of Conception, Low, Open Approach (ICD-10-PCS; principal; 2018-08-03)
DX: O42.913 Preterm premature rupture of membranes, unspecified as to length of time between rupture and onset of labor, third trimester (principal); O98.813 Other maternal infectious and parasitic diseases complicating pregnancy, third trimester; O86.12 Endometritis following delivery; O34.211 Maternal care for low transverse scar from previous cesarean delivery; Z37.0 Single live birth; R82.71 Bacteriuria; B95.1 Streptococcus, group B, as the cause of diseases classified elsewhere; Z3A.38 38 weeks gestation of pregnancy; N85.8 Other specified noninflammatory disorders of uterus; Z28.3 Underimmunization status
CPT/HCPCS: 36415; 51702; 76819; 80053; 82239; 84112; 85027; 86780; 86850; 86900; 86901; 87340; 87389; 87480; 87510; 87660; 90716; 99285; J0456; J1100; J1200; J1580; J1885; J2210; J2250; J2274; J2405; J2590; J3010; J3490; J7050

== ENCOUNTER 2019-04-07 21:16 | Emergency (ER) | payer MEDICAID, SELFPAY | END 2019-04-08 00:08 | disposition home or self-care (01) | LOC: ERS 21:16 | DX: H11.33 Conjunctival hemorrhage, bilateral (principal) | CPT/HCPCS: 99283 ==

== ENCOUNTER 2019-06-25 12:44 | Emergency (ER) | payer SELFPAY ==
[2019-06-25 14:36] LABS: Bilirubin Negative (Negative); Blood, Urine Negative (Negative); Clarity Clear (Clear); Glucose, Urine (Dipstick) Normal (Negative); Leukocyte Negative Leu/uL (Negative); Nitrite Negative (Negative); Protein, Urine (Dipstick) 10 mg/dL (Neg-Trace); Urobilinogen Normal mg/dL (Less than 2)
[2019-06-25 14:43] LABS: #Basophils 0.1 thou/uL (0.0-0.2); #Eosinphils 0.2 thou/uL (0.0-0.7); #Lymphocytes 3.4 thou/uL (1.20-3.40); #Monocytes 0.9 thou/uL (0.11-0.59); #Neutrophils 6.3 thou/uL (1.40-6.50); %Basophils 0.5 % (0.0-1.0); %Eosinophils 1.8 % (0.0-10.0); %Lymphocytes 31.3 % (21.0-51.0); %Monocytes 7.9 % (0.0-10.0); %Neutrophils 58.5 % (42.0-75.0); Hemoglobin 11.4 g/dL (12.0-16.0); Mean Corpuscular Hemoglobin 22.5 pg (27.0-31.0); Mean Corpuscular Volume 72.6 fL (78.0-98.0); Mean Platelet Volume 9.8 fL (7.4-10.4); Platelet Count 337 thou/uL (130-400); RBC Distribution Width 18.1 % (11.5-14.5); Red Blood Cell (RBC) Count 5.06 mill/uL (4.20-5.40); White Blood Cell (WBC) Count 10.8 thou/uL (4.8-10.8)
[2019-06-25 14:47] LABS: BHCG - Serum Negative (NEGATIVE); Pregs Control Background? CLEAR/WHITE (CLR/WHITE); Pregs Control Bar Appear? YES (CONTROL BAR)
[2019-06-25 15:00] LABS: ALT (SGPT) 15 U/L (8-55); AST (SGOT) 16 U/L (5-34); Albumin 4.6 g/dL (3.5-5.0); Alkaline Phosphatase 129 U/L (40-110); Anion Gap 10 mmol/L (10-20); BUN (Urea Nitrogen) 10 mg/dL (7.0-18.7); Bilirubin, Total 0.8 mg/dL (0.2-1.2); Calc. Creatinine Clearance 0 mL/min (70-130); Calcium 9.6 mg/dL (7.8-10.44); Carbon Dioxide 27 mmol/L (22-29); Chloride 102 mmol/L (98-107); Estimated GFR-MDRD Greater than 90; Globulin 3.7 g/dL (2.4-3.5); Glucose 96 mg/dL (70-105); Lipase 35 U/L (8-78); Protein, Total 8.3 g/dL (6.0-8.3); Sodium 135 mmol/L (136-145)
[2019-06-25 15:10] LABS: Anisocytosis SLIGHT = 6-15 cells (100X) (0-5/hpf); Hypochromia SLIGHT = 6-15 cells (100X) (0-5/hpf); MDiff Complete? YES; Microcytosis SLIGHT = 6-15 cells (100X) (0-5/hpf); Platelet Morphology Comment Appears Adequate; Polychromasia SLIGHT = 2-3 cells (100X) (0-2/hpf); Target Cells SLIGHT = 2-5 cells (100X) (0-1/hpf)
[2019-06-25] MEDS ORDERED: Ondansetron PF 4 MG/2 ML Vial ONE (15:21)
== END 2019-06-25 16:40 | disposition home or self-care (01) ==
LOC: ERS 12:44
DX: R10.9 Unspecified abdominal pain (principal); G89.29 Other chronic pain
CPT/HCPCS: 36415; 80053; 81003; 83690; 84703; 85025; 96361; 96374; J2405

== ENCOUNTER 2019-07-19 20:04 | Emergency (ER) | payer SELFPAY ==
[2019-07-19 20:29] LABS: Bilirubin Negative (Negative); Blood, Urine Negative (Negative); Clarity Clear (Clear); Glucose, Urine (Dipstick) Normal (Negative); Leukocyte Negative Leu/uL (Negative); Nitrite Negative (Negative); Protein, Urine (Dipstick) Negative (Neg-Trace); Urobilinogen Normal mg/dL (Less than 2)
[2019-07-19 20:45] LABS: #Basophils 0.1 thou/uL (0.0-0.2); #Eosinphils 0.3 thou/uL (0.0-0.7); #Lymphocytes 4.1 thou/uL (1.20-3.40); #Neutrophils 5.2 thou/uL (1.40-6.50); %Basophils 0.9 % (0.0-1.0); %Eosinophils 2.8 % (0.0-10.0); %Lymphocytes 38.5 % (21.0-51.0); %Monocytes 8.9 % (0.0-10.0); %Neutrophils 48.9 % (42.0-75.0); Hemoglobin 10.7 g/dL (12.0-16.0); Mean Corpuscular HGB CONC 31.5 g/dL (32.0-36.0); Mean Corpuscular Hemoglobin 22.7 pg (27.0-31.0); Mean Corpuscular Volume 72.3 fL (78.0-98.0); Mean Platelet Volume 9.7 fL (7.4-10.4); Platelet Count 309 thou/uL (130-400); RBC Distribution Width 17.5 % (11.5-14.5); Red Blood Cell (RBC) Count 4.71 mill/uL (4.20-5.40); White Blood Cell (WBC) Count 10.7 thou/uL (4.8-10.8)
[2019-07-19 20:50] LABS: BHCG - Serum Negative (NEGATIVE); Pregs Control Background? CLEAR/WHITE (CLR/WHITE); Pregs Control Bar Appear? YES (CONTROL BAR)
[2019-07-19 20:58] LABS: ALT (SGPT) 14 U/L (8-55); AST (SGOT) 15 U/L (5-34); Albumin 4.3 g/dL (3.5-5.0); Alkaline Phosphatase 128 U/L (40-110); Anion Gap 11 mmol/L (10-20); BUN (Urea Nitrogen) 17 mg/dL (7.0-18.7); Bilirubin, Total 0.3 mg/dL (0.2-1.2); Calc. Creatinine Clearance 0 mL/min (70-130); Calcium 9.2 mg/dL (7.8-10.44); Carbon Dioxide 24 mmol/L (22-29); Chloride 104 mmol/L (98-107); Estimated GFR-MDRD Greater than 90; Globulin 3.4 g/dL (2.4-3.5); Glucose 84 mg/dL (70-105); Lipase 62 U/L (8-78); Potassium 3.5 mmol/L (3.5-5.1); Protein, Total 7.7 g/dL (6.0-8.3); Sodium 135 mmol/L (136-145)
--- NOTE | 2019-07-19 23:31 | RAD ---
CHEST ONE VIEW ABDOMEN TWO VIEWS 07/19/19 HISTORY: Right sided abdominal pain. FINDINGS/IMPRESSION: The heart size is normal. The lungs are clear. No free air or differential fluid levels are seen. The bowel gas pattern is unremarkable. There is fecal material in the colon. No suspicious calcification s are identified. POS: [facility]
[2019-07-22 21:22] LABS: Chlamydia by PCR Not Detected (NotDetected); GC by PCR Not Detected (NotDetected)
== END 2019-07-19 23:52 | disposition home or self-care (01) ==
LOC: ERS 20:04
DX: K59.00 Constipation, unspecified (principal)
CPT/HCPCS: 36415; 74022; 80053; 81003; 83690; 84703; 85025; 87480; 87491; 87510; 87591; 87660